=== PATIENT | female | born 1995 | race Two or more races ===

== ENCOUNTER 2018-09-12 20:35 | Emergency (ER) | payer OTHER ==
[~2018-09-12] VITALS: Ht 157.5 cm; Wt 62.6 kg
[2018-09-12 20:40] VITALS: BP 127/87
[2018-09-12] MEDS ORDERED: ALPR0.5T PO (21:28)
--- NOTE | 2018-09-12 23:23 | PHYS DOC ---
Past Medical History Past Medical History: Anxiety, Other Additional Past Medical Histor: DEPRESSION Past Surgical History: No Surgical History Alcohol Use: None Drug Use: None Adult General Chief Complaint Chief Complaint: ANXIETY/PANIC ATTACK HPI HPI Patient is a 23 year old female who presents with anxiety attack. Patient was at home this evening when she had onset of panic symptoms. She had perceived rapid heart rate and some shortness of breath. She did not have chest pain. She waited some period of time expecting her symptoms to resolve but they did not so she came to the emergency department. The patient has a known history of anxiety. She has had similar attacks in the past and states this attack fell exactly like her normal symptoms. She has no recent illness. There was no precipitating event but the patient does state her anxiety has been worse in recent days because she is going through a move. She lives at home with her child and . She feels safe at home. No hallucinations or suicidal thoughts. She had previously been treated with SSRI and Xanax for acute symptoms. She has not required any of these medications for a couple of years. She currently has no medicines at home. She was intentionally tapered off of the SSRI as her symptoms previously were primarily in nature. Review of Systems Review of Systems Constitutional: Denies fever or chills Eyes: Denies change in visual acuity HENT: Denies nasal congestion or sore throat Respiratory: Denies cough or shortness of breath Cardiovascular: No additional information GI: Denies abdominal pain, nausea : Denies dysuria Musculoskeletal: Denies back pain Integument: Denies rash or skin lesions Neurologic: Denies headache Endocrine: Denies polyuria All other systems were reviewed and found to be within normal limits, except as documented in this note. Allergies Allergies Allergies Coded Allergies Type Severity Reaction Last Updated Verified No Known Drug Allergies 09/12/18 No Physical Exam Physical Exam Constitutional: Well developed, well nourished, no acute distress, non-toxic appearance HENT: Normocephalic, atraumatic, bilateral external ears normal, oropharynx moist Eyes: PERRLA Neck: Normal range of motion, no tenderness Cardiovascular:Heart rate regular rhythm, no murmur Lungs & Thorax: Bilateral breath sounds clear to auscultation Skin: Warm, dry, no erythema, no rash Neurologic: Alert and oriented X 3, normal motor function, normal sensory function, no focal deficits noted Psychologic: Affect normal, judgement normal, mood normal Current Patient Data Vital Signs Vital Signs Date Time Temp Pulse Resp B/P (MAP) Pulse Ox O2 Delivery O2 Flow Rate FiO2 09/12/18 20:40 98.1 70 14 127/87 (100) 100 Room Air 98.1 EKG EKG [] Radiology/Procedures Radiology/Procedures [] Course & Med Decision Making Course & Med Decision Making Pertinent Labs and Imaging studies reviewed. (See chart for details) Patient was evaluated immediately on arrival to her room. She had no additional symptoms. Her panic attack had entirely resolved. Her symptoms were identical to prior panic attacks. She does not have medication at home. I did offer the patient a refill for a few Xanax which she used previously for acute symptoms. The patient did not feel that she would need to fill the prescription. She was provided a total of 15 pills. Advised to follow-up with her primary care doctor or come back to the ER for any new or worsening symptoms that her medications at home did not improve. Dragon Disclaimer Dragon Disclaimer This electronic medical record was generated, in whole or in part, using a voice recognition dictation system. Departure Departure Impression: Primary Impression: Anxiety Disposition: HOME, SELF-CARE Condition: GOOD Patient Instructions: Anxiety and Panic Attacks, [id number] Scripts Alprazolam (XANAX) 0.5 Mg Tablet 1 TAB PO BID PRN for ANXIETY, #15 TAB Prov: ALINE ANAYA DO 09/12/18 ALINE ANAYA DO Sep 12, 2018 23:23
== END 2018-09-12 21:40 | disposition home or self-care (01) ==
LOC: ER 20:35
DX: F41.9 Anxiety disorder, unspecified (principal); R00.0 Tachycardia, unspecified
CPT/HCPCS: 99284